=== PATIENT | male | born 1955 | race Asian ===

== ENCOUNTER 2016-05-09 07:04 | Inpatient (IN) | payer OTHER ==
[~2016-05-09] VITALS: Ht 152.4 cm; Wt 61.7 kg
--- NOTE | 2016-05-09 07:04 | NUR ---
Patient BIBA and taken to bed 01 via gurney per EMS.
[2016-05-09 07:05] VITALS: BP 139/76
--- NOTE | 2016-05-09 07:08 | NUR ---
60/M JAP[place] BIBA W/C/O SOB AND CHRONIC ABDOMINAL PAIN DISTENTED AND RIGID. PATIENT WAS IN DIALYSIS FOR TWO HOURS WHEN PATIENT STARTED TO [facility]. HX:RENAL FAILURE, HTN, CARDIAC DISEASE. PATIENT WAS RECENTLY AT [facility] FOR CARDIAC ARREST AND WAS INTUBATED. PT DENIES N/V/D; SKIN IS PINK/WARM/DRY; AAOX4 WITH EVEN AND UNSTEADY GAIT; LUNGS CLEAR BL; HR EVEN AND REGULAR; PT DENIES ANY FEVER, CP OR COUGH AT THIS TIME; PATIENT STATES PAIN OF 10/10 AT THIS TIME; PATIENT POSITIONED FOR COMFORT; HOB ELEVATED; BEDRAILS UP X2; BED DOWN. ER MADE AWARE OF PT STATUS. Addendum: 05/09/16 at 1155 by [email or web address] PT HAD L SCOTUM SURGERY 1 MONTH & MINIMAL BLEEDING FROM SCAR SUGERY, PRESSURE STOP BLEEDING W/ DRY DRESSING
[2016-05-09] MEDS ORDERED: ASPIRIN 81 MG TAB.CHEW PO ONE (07:15)
--- NOTE | 2016-05-09 07:21 | NUR ---
Dr. Hyde evaluating patient at bedside.
--- NOTE | 2016-05-09 07:23 | NUR ---
ISABELLA WHITFIELD CALLED PT'S DAUGHTER [phone] X 4 TIMES BUT PT'S DAUGHTER HANG UP; WILL FOLLOW UP AGAIN.
[2016-05-09] MEDS ORDERED: ONDANSETRON 4 MG/2 ML VIAL IVP ONE (07:25)
[2016-05-09] MEDS ORDERED: MORPHINE SULFATE 4 MG/ML SYR IVP ONE ×2 (07:25→09:40)
[2016-05-09] MEDS ORDERED: CIPRO500 MG PO (07:37)
[2016-05-09] MEDS ORDERED: OSCAL500 MG PO (07:37)
[2016-05-09] MEDS ORDERED: LONITEN10 MG PO (07:37)
[2016-05-09] MEDS ORDERED: RENAGEL800 M1 PO (07:37)
[2016-05-09] MEDS ORDERED: PROCARDIA XL30 MG PO (07:37)
--- NOTE | 2016-05-09 07:38 | NUR ---
LAB AT BED SIDE
--- NOTE | 2016-05-09 07:40 | NUR ---
PT TAKEN TO X RAY VIA GURVU ACCOMPANIED BY CONTROL ENGINEER
--- NOTE | 2016-05-09 08:00 | NUR ---
YOHANA SEQUEIRA CALLED AND TALKED TO SON IN LAW ,TEL NO [phone]
--- NOTE | 2016-05-09 08:29 | NUR ---
LAB AT BEDSIDE
--- NOTE | 2016-05-09 08:43 | NUR ---
USED [employer] IN[employer]; SPOKE W/ PT; DENIES SOB AT THIS TIME, BUT STATES STILL HAS RT ABDOMINAL PAIN; PT STATES MORPHINE GIVEN RELIEVES PAIN; ER MD DR. ZHANG NOTIFIED; WILL CONTINUE TO MONITOR.
--- NOTE | 2016-05-09 08:57 | NUR ---
Patient appears to be resting comfortably in bed. Respirations even and unlabored.WILL CONTINUE TO MONITOR.
[2016-05-09] MEDS ORDERED: MORPHINE SULFATE 4 MG/ML SYR ONE (09:39)
--- NOTE | 2016-05-09 10:11 | NUR ---
PA student re-evaluating patient at bedside.
--- NOTE | 2016-05-09 10:40 | NUR ---
FAMILY AT BEDSIDE
--- NOTE | 2016-05-09 11:30 | NUR ---
CALLED ISABELLA BELTRÁN TO GIVE REPORT. ISABELLA BELTRÁN WILL CALL BACK
--- NOTE | 2016-05-09 11:53 | NUR ---
Patient will be admitted to care of [facility]. Admited to TELE. Will go to room 107. Belongings list completed. Report to ISABELLA BELTRÁN.
--- NOTE | 2016-05-09 11:55 | NUR ---
RECEIVED REPORT FROM ER NURSE. AWAITING PT ARRIVAL TO UNIT.
[2016-05-09 12:08] VITALS: BP 124/56
--- NOTE | 2016-05-09 12:08 | NUR ---
PT ARRIVED TO UNIT FROM ER. PT IS AAOX4, GABONESE SPEAKING. PT ON 2L NC, O2 SAT AT 94%. IV TO RIGHT AC #20, PATENT AND INTACT. LEFT AV SHUNT TO UPPER ARM, THRILL AND BRUIT NOTED. SMALL CUT NOTED TO LEFT TESTICLE, OPEN TO AIR NO BLEEDING AT THIS TIME. NO N/V OR PAIN INDICATED. ALL SAFETY PRECAUTIONS IN PLACE, SIDE RAILSX2, BED IN LOW POSITION, AND CALL LIGHT WITHIN REACH. WILL PERFORM FREQUENT ROUNDS.
--- NOTE | 2016-05-09 13:10 | NUR ---
DR FAULKNER IN TO SEE PT. WILL FOLLOW UP ON ORDERS.
[2016-05-09] MEDS ORDERED: POTASSIUM CHLORIDE 10 MEQ TABER PO PRN (13:20)
[2016-05-09] MEDS ORDERED: ZOLPIDEM 5 MG TAB PO PRN (13:20)
[2016-05-09] MEDS ORDERED: diphenhydrAMINE 50 MG/ML VIAL IVP PRN (13:20)
[2016-05-09] MEDS ORDERED: ALUMINUM HYD/MAG/SIMETHICONE 30 ML UDC PO PRN (13:20)
[2016-05-09] MEDS ORDERED: LORazepam 2 MG/ML VIAL IVP PRN (13:20)
[2016-05-09] MEDS ORDERED: MAGNESIUM OXIDE 400 MG TAB PO PRN (13:20)
[2016-05-09] MEDS ORDERED: MORPHINE SULFATE 4 MG/ML SYR IVP PRN (13:20)
[2016-05-09] MEDS ORDERED: guaiFENesin DM 200/20 MG-10 ML 10 ML UDC PO PRN (13:20)
[2016-05-09] MEDS ORDERED: DOCUSATE SODIUM 250 MG GELCAP PO PRN (13:20)
[2016-05-09] MEDS ORDERED: ACETAMINOPHEN 650 MG SUPP RC PRN (13:20)
[2016-05-09] MEDS ORDERED: ACETAMINOPHEN 325 MG TAB PO PRN (13:20)
[2016-05-09] MEDS ORDERED: cloNIDine 0.1 MG TAB PO PRN (13:20)
[2016-05-09] MEDS ORDERED: SODIUM PHOSPHATE 118 ML ENEM RC PRN (13:20)
[2016-05-09] MEDS ORDERED: BISACODYL 10 MG SUPP RC PRN (13:20)
[2016-05-09] MEDS ORDERED: MAG SULF 2000 MG/WATER PREMIX 50 ML IV PRN (13:20)
[2016-05-09] MEDS ORDERED: IPRATROPIUM 0.02% 0.5 MG/2.5 ML NEBU INH PRN (13:20)
[2016-05-09] MEDS ORDERED: HYDROcodone/APAP 5/325 MG 1 TAB TAB PO PRN (13:20)
[2016-05-09] MEDS ORDERED: POTASSIUM CHLORIDE 40 MEQ, LIDOCAINE 1% 25 MG in NACL 0.9% 250 ML IV PRN (13:20)
[2016-05-09] MEDS ORDERED: ALBUTEROL 0.083% 2.5 MG/3 ML NEBU INH PRN (13:20)
[2016-05-09] MEDS ORDERED: ONDANSETRON 4 MG/2 ML VIAL IVP PRN (13:20)
[2016-05-09] MEDS ORDERED: MORPHINE SULFATE 2 MG/ML SYR IVP PRN (13:20)
--- NOTE | 2016-05-09 14:00 | NUR ---
PT SLEEPING WITH NO DISTRESS NOTED.
[2016-05-09 16:00] VITALS: BP 126/62
[2016-05-09] MEDS: SEVELAMER 800 MG TAB PO SCH (16:08)
[2016-05-09] MEDS: HYDROcodone/APAP 5/325 MG 1 TAB TAB PO PRN (16:13)
--- NOTE | 2016-05-09 16:14 | NUR ---
PT C/O 5/10 PAIN TO ABDOMEN. VSS. ADMINISTERED NORCO ORDERED, PT TOLERATED WELL. WILL CONTINUE TO MONITOR.
--- NOTE | 2016-05-09 18:05 | NUR ---
PT EATING DINNER WITH NO DISTRESS NOTED. ALL NEEDS MET AT THIS TIME. WILL CONTINUE TO MONITOR.
--- NOTE | 2016-05-09 19:22 | NUR ---
ENDORSED CARE TO ISABELLA STODDARD. PT IN STABLE CONDITION.
--- NOTE | 2016-05-09 19:25 | NUR ---
RECEIVED PT SLEEPING, EASILY AROUSABLE, AAOX4, CAMEROONIAN SPEAKING BUT SPEAK AND UNDERSTAND A LITTLE KHMER, VITAL SIGNS STABLE, DENIES ANY PAIN, NO SOB NOTED, ABDOMEN DISTENDED WITH POSITIVE BOWEL SOUNDS, WITH LEFT UA AV SHUNT INTACT, IV HEPLOCK, SCD IN PLACE, SIDE RAILS UP AND BED ALARM ON, CALL LIGHT WITHIN REACH.
[2016-05-09 20:00] VITALS: BP 119/59
[2016-05-09] MEDS: MORPHINE TAB ER 15 MG TABER PO SCH (20:12)
--- NOTE | 2016-05-09 21:20 | NUR ---
DUE MS CONTIN DOSE GIVEN WITH EDUCATION PROVIDED, ALL NEEDS ATTENDED.
--- NOTE | 2016-05-09 22:40 | NUR ---
AMBULATORY TO BR WITH STEADY GAIT AND VOIDED FREELY, ALL NEEDS ATTENDED.
--- NOTE | 2016-05-09 23:00 | NUR ---
PT TOOK OFF SCD, DOESN'T WANT TO PUT IT BACK, RISK AND BENEFITS EXPLAINED, STILL REFUSING, MONITORED CLOSELY.
[2016-05-10] VITALS: BP 128/55
--- NOTE | 2016-05-10 | NUR ---
ASLEEP, EASILY AROUSABLE, VITAL SIGNS STABLE, NO SIGNS OF DISTRESS, CONTINUE TO MONITOR CLOSELY.
[2016-05-10] MEDS: HYDROcodone/APAP 5/325 MG 1 TAB TAB PO PRN ×2 (01:43→12:57)
--- NOTE | 2016-05-10 01:50 | NUR ---
PT AWAKE COMPLAINING OF ABDOMINAL PAIN, MEDICATED PRN WITH NORCO, MONITORED CLOSELY.
[2016-05-10 04:00] VITALS: BP 128/61
--- NOTE | 2016-05-10 04:00 | NUR ---
SLEEPING, EASILY AROUSABLE, VITAL SIGNS STABLE, NO SOB NOTED, DENIES ANY PAIN, MONITORED CLOSELY.
--- NOTE | 2016-05-10 06:10 | NUR ---
PT SLEEPING, NO SIGNS OF DISTRESS, MONITORED CLOSELY.
--- NOTE | 2016-05-10 07:17 | NUR ---
DR STARKEY HERE, MADE AWARE OF CREATININE LEVEL OF 8.5, NO ORDER AT THIS TIME.
--- NOTE | 2016-05-10 07:20 | NUR ---
PT SLEEPING, NO SIGNS OF DISTRESS, REPORT GIVEN TO RN JEREL FOR CONTINUITY OF CARE.
--- NOTE | 2016-05-10 07:21 | NUR ---
RECEIVED REPORT FROM ISABELLA STODDARD. PT IS AAOX4. PT ON ROOM AIR WITH NO S/S OF DISTRESS NOTED, O2 SAT AT 93%. IV TO RIGHT AC #20, PATENT AND INTACT. INCISION TO LEFT TESTICLE, OPEN TO AIR, NO BLEEDING NOTED. NO N/V OR PAIN INDICATED. ALL SAFETY PRECAUTIONS IN PLACE, SIDE RAILSX2, AND CALL LIGHT WITHIN REACH. WILL CONTINUE TO MONITOR.
[2016-05-10 08:00] VITALS: BP 155/74
[2016-05-10] MEDS: SEVELAMER 800 MG TAB PO SCH ×2 (08:57→11:04)
[2016-05-10] MEDS: MORPHINE TAB ER 15 MG TABER PO SCH (08:58)
[2016-05-10] MEDS ORDERED: NIFEdipine 30 MG TABER PO SCH (09:00)
[2016-05-10] MEDS ORDERED: MINOXIDIL 10 MG TAB PO SCH (09:00)
[2016-05-10] MEDS ORDERED: ENOXAPARIN 30 MG/0.3 ML SYR SUBQ SCH (09:00)
[2016-05-10] MEDS ORDERED: CALCIUM CARBONATE 500 MG TAB PO SCH (09:00)
--- NOTE | 2016-05-10 09:03 | NUR ---
VSS. PT TOLERATED MEDS WELL. WILL CONTINUE TO MONITOR.
[2016-05-10] MEDS ORDERED: MS CONTIN15 M1 PO (10:10)
--- NOTE | 2016-05-10 10:36 | NUR ---
PT SLEEPING WITH NO DISTRESS NOTED.
--- NOTE | 2016-05-10 11:07 | NUR ---
PT TOLERATED MEDS WELL. TALKED TO PT'S DAUGHTER. DAUGHTER TO TRACTOR DRILL OPERATOR PT AT 1500.
[2016-05-10 12:00] VITALS: BP 151/72
--- NOTE | 2016-05-10 12:58 | NUR ---
PT C/O 5/10 PAIN TO ABDOMEN. VSS. ADMINISTERED NORCO ORDERED. WILL CONTINUE TO MONITOR.
--- NOTE | 2016-05-10 13:08 | NUR ---
PT TO BE DISCHARGED, DAUGHTER IN TO QUALITY SYSTEMS TECHNICIAN PT.
--- NOTE | 2016-05-10 13:31 | NUR ---
PT COMPLAINING OF CONSTIPATION. ADMINISTERED COLACE ORDERED. PROVIDED PT WITH PRUNE JUICE. PT TO FOLLOW UP WITH PCP. Addendum: 05/10/16 at 1346 by Melba Garcia RN PT REFUSED ENEMA AND SUPPOSITORY.
--- NOTE | 2016-05-10 13:40 | NUR ---
PT HAS BEEN DISCHARGED. ALL PAPERWORK SIGNED, ALL QUESTIONS ANSWERED. ALL BELONGINGS AND PRESCRIPTION IN PT POSSESSION. IV DC'ED WITH CANNULA INTACT. WRISTBANDS AND TELE MONITOR REMOVED. NOTIFIED CENTER CUSTOMER SERVICE ASSOCIATE. PT WHEELED OUT OF UNIT WITH FAMILY PRESENT AT BEDSIDE. PT AMBULATED TO VEHICLE WITH STEADY GAIT. PT TO FOLLOW UP WITH PCP WITHIN ONE WEEK. PT IN STABLE CONDITION.
--- NOTE | 2016-05-11 09:46 | NUR ---
CM NOTE RETRO REVIEW FAXED TO [facility] (FAX# [phone]) AND [facility] (FAX# [phone])
== END 2016-05-10 13:40 | disposition home or self-care (01) | DRG 251 ==
LOC: MED 07:04 → MTU 11:26
PROVIDERS: ADMIT Internal Medicine Pulmonary Disease; ATTEND Internal Medicine Pulmonary Disease
DX: R10.9 Unspecified abdominal pain (principal); I12.0 Hypertensive chronic kidney disease with stage 5 chronic kidney disease or end stage renal disease; Q61.3 Polycystic kidney, unspecified; R16.0 Hepatomegaly, not elsewhere classified; Q44.6 Cystic disease of liver; R06.02 Shortness of breath; G89.29 Other chronic pain; I25.10 Atherosclerotic heart disease of native coronary artery without angina pectoris; Z99.2 Dependence on renal dialysis; Z90.79 Acquired absence of other genital organ(s)